=== PATIENT | male | born 1970 | race Caucasian/White ===

== ENCOUNTER 2022-01-06 02:03 | Emergency (ER) | payer OTHER ==
[~2022-01-06] VITALS: Ht 185.5 cm; Wt 110.0 kg
--- NOTE | 2022-01-06 02:36 | ED Integumentary General ---
General Stated Complaint: FALL/LIP LAC Source: patient Exam Limitations: no limitations History of Present Illness Date Seen by Provider: Jan 06, 2022 Time Seen by Provider: 02:30 Initial Comments 51-year-old male presents for laceration to his left upper lip. He was walking up some stairs and fell down striking his lip. He did not lose consciousness. No other injuries. Does not know when his last tetanus shot was. Allergies and Home Medications Allergies Coded Allergies: No Known Drug Allergies (Unverified , 01/06/22) Patient Home Medication List Home Medication List Reviewed: Yes Review of Systems Review of Systems Constitutional: no symptoms reported EENTM: no symptoms reported Respiratory: no symptoms reported Cardiovascular: no symptoms reported Gastrointestinal: no symptoms reported Musculoskeletal: no symptoms reported Skin: no symptoms reported Psychiatric/Neurological: No Symptoms Reported Endocrine: No Symptoms Reported Hematologic/Lymphatic: No Symptoms Reported Past Wqkwfnc-[id number]-Urmnyq Hx Patient Social History Tobacco Use?: No Use of E-Cig and/or Vaping dev: No Substance use?: No Alcohol Use?: Yes Family Medical History Reviewed Nursing Family Hx No Pertinent Family Hx Physical Exam Vital Signs Vital Signs - First Documented 01/06/22 01/06/22 02:34 03:39 Temp 36.6 Pulse 82 Resp 14 B/P (MAP) 116/81 (93) Pulse Ox 100 O2 Delivery Room Air Capillary Refill : General Appearance: WD/WN, no apparent distress HEENT: PERRL/EOMI, normal ENT inspection, TMs normal, pharynx normal Neck: non-tender, full range of motion, supple, normal inspection Cardiovascular: regular rate, rhythm, no edema, no gallop, no JVD, no murmur Respiratory: chest non-tender, lungs clear, normal breath sounds, no respiratory distress, no accessory muscle use Gastrointestinal: normal bowel sounds, non tender, soft, no organomegaly, no pulsatile mass Extremities: normal range of motion, non-tender, normal inspection, no pedal edema, no calf tenderness Skin: normal color, other (3 cm laceration to the medial portion of the left upper lip. Vermilion border is not involved.) Lymphatic: no adenopathy Procedures/Interventions Wound Location: Face Other Wound Location Left upper lip Wound Length (cm): 3 Wound's Depth, Shape: linear, flap Wound Explored: clean Irrigated w/ Saline (ccs): 500 Anesthesia: 1% Lidocaine Suture: Chromic Suture Size: 4-0 Number of Sutures: 5 Progress/Results/Core Measures Results/Orders My Orders Orders - TREMAYNE DILL DO DiphtKennedy(Acell),Tet Adult (Boostrix (01/06/22 02:45) Lidocaine 1% Inj 20 Ml (Xylocaine 1% Inj (01/06/22 02:45) Vital Signs/I&O 01/06/22 01/06/22 02:34 03:39 Temp 36.6 36.4 Pulse 82 86 Resp 14 12 B/P (MAP) 116/81 (93) 125/67 Pulse Ox 100 99 O2 Delivery Room Air Departure Communication (Admissions) Wound does not include the vermilion but is pretty extensive in the outer and inner lip. Approximated loosely with fast-absorbing chromic gut. Patient given care instructions and discharged in stable condition Impression Primary Impression: Lip laceration Qualified Codes: S01.511A - Laceration without foreign body of lip, initial encounter Disposition: HOME, SELF-CARE Condition: Stable Departure-Patient Inst. Referrals: NO,LOCAL PHYSICIAN (PCP/Family) Primary Care Physician Patient Instructions: Laceration Repair With Stitches ED Add. Discharge Instructions: The stitches should dissolve on their own. Try to take it easy so not to bust them. Use ibuprofen and Tylenol as needed for pain. Your tetanus shot was updated today. TREMAYNE DILL DO Jan 06, 2022 02:36
[2022-01-06] MEDS ORDERED: LIDOCAINE 1% INJ 20 ML VIAL INJ ONE (02:45)
[2022-01-06] MEDS ORDERED: TETANUS,DIPTH,PERTUSS P/F (BOOSTRIX) 0.5 ML VIAL IM ONE (02:45)
[2022-01-06 03:39] VITALS: BP 125/67
== END 2022-01-06 03:30 | disposition home or self-care (01) ==
LOC: ER 02:06
DX: S01.511A Laceration without foreign body of lip, initial encounter (principal); Z23 Encounter for immunization; Z28.310 Unvaccinated for COVID-19; W10.9XXA Fall (on) (from) unspecified stairs and steps, initial encounter; Y93.01 Activity, walking, marching and hiking
CPT/HCPCS: 12051; 90715